=== PATIENT | female | born 1995 | race Hispanic/Latino ===

== ENCOUNTER 2023-07-15 19:24 | Inpatient (IN) | payer OTHER ==
[~2023-07-15] VITALS: Ht 165.1 cm; Wt 105.7 kg
[2023-07-15 19:49] LABS: APPEARANCE,URINE CLOUDY (CLEAR); BILIRUBIN,URINE 0.5 mg/dL (NEGATIVE); COLOR,URINE YELLOW (YELLOW); GLUCOSE, URINE (UA) NEGATIVE (NEGATIVE); KETONES,URINE 5 mg/dL (NEGATIVE); LEUKOCYTE ESTERASE ,URINE 75 Leu/uL (NEGATIVE); NITRATE,URINE NEGATIVE (NEGATIVE); OCCULT BLOOD,URINE NEGATIVE (NEGATIVE); PH,URINE 5.5 (5.0-8.0); PROTEIN,URINE 20 mg/dL (NEGATIVE)
[2023-07-15 19:52] LABS: ADD UA MICROSCOPIC YES
[2023-07-15 19:54] LABS: BACTERIA,URINE MOD /HPF (None Seen); MUCUS,URINE MANY LPF (None Seen); SQUAMOUS EPITHELIAL CELL,UR MOD /HPF (0-2)
[2023-07-15 20:16] LABS: BASOPHILS # (AUTO) 0.04 K/uL (0.00-0.20); BASOPHILS % (AUTO) 0.4 % (0.0-5.0); EOSINOPHILS # (AUTO) 0.08 K/uL (0.00-0.70); EOSINOPHILS % (AUTO) 0.8 % (0.0-8.0); HEMATOCRIT 47.1 % (36-48); IMMATURE GRANULOCYTE ABSOLUTE 0.05 K/uL (0-1); LYMPHOCYTES # (AUTO) 2.2 K/uL (1.0-4.8); MEAN CORPUSCULAR HEMOGLOBIN 27.9 pg (27.0-33.0); MEAN CORPUSCULAR HGB CONC 32.3 g/dL (32.0-36.0); MEAN CORPUSCULAR VOLUME 86.6 fL (79-99); MONOCYTES # (AUTO) 0.5 K/uL (0.1-1.0); MONOCYTES % (AUTO) 4.5 % (3.0-13.0); NEUTROPHILS # (AUTO) 7.6 K/uL (1.8-7.7); NEUTROPHILS % (AUTO) 72.8 % (40.0-77.0); PLATELET COUNT (AUTO) 333 K/uL (130-400); RED BLOOD CELL COUNT(AUTO) 5.44 MIL/uL (4.00-5.50); RED CELL DISTRIBUTION WIDTH 14.5 % (11.0-15.5); WHITE BLOOD COUNT (AUTO) 10.5 K/uL (4.8-10.8)
[2023-07-15 21:29] LABS: CREATININE 1.1 mg/dL (0.5-1.5)
[2023-07-15] MEDS ORDERED: 0.9%NACL 1000ML 1,000 ML IV ONE (21:30)
[2023-07-15] MEDS ORDERED: ONDANSETRON 4MG INJ IVP ONE (21:30)
[2023-07-15] MEDS ORDERED: MORPHINE 2 MG SYG IVP ONE (21:30)
[2023-07-15 21:35] LABS: ALBUMIN 3.9 g/dL (3.5-5.0); BILIRUBIN,TOTAL 2.7 mg/dL (0.2-1.0); TOTAL PROTEIN, SERUM 8.9 g/dL (6.0-8.3)
[2023-07-15 22:19] LABS: AMYLASE 34 U/L (25-115); CREATINE KINASE, TOTAL 65 U/L (21-232)
[2023-07-15] MEDS ORDERED: MAGNESIUM 2GM PREMIX 50ML 50 ML IV PRN (23:00)
[2023-07-15] MEDS ORDERED: POTASSIUM CHLORIDE 10% ELIXIR 20 MEQ/15 ML UDCUP PO PRN (23:00)
[2023-07-15] MEDS ORDERED: ACETAMINOPHEN 325 MG TAB PO PRN ×2 (23:00)
[2023-07-15] MEDS ORDERED: POTASSIUM CHLORIDE 20MEQ/100ML 100 ML IV PRN (23:00)
[2023-07-15] MEDS ORDERED: KCL 20 MEQ ERTAB PO PRN (23:00)
[2023-07-15] MEDS: LACTATED RINGERS 1000ML 1,000 ML IV SCH (23:17)
[2023-07-15] MEDS: CEFTRIAXONE 2GM VIAL IVPB SCH (23:17)
[2023-07-15] MEDS ORDERED: IOHEXOL 350 MG/ML 100ML INFUS..BTL IV ONE (23:24)
[2023-07-16] MEDS: ONDANSETRON 4MG INJ IV PRN ×2 (04:08→11:27)
[2023-07-16] MEDS: MORPHINE 4 MG SYG IV PRN ×3 (04:08→16:37)
[2023-07-16 06:31] LABS: BASOPHILS # (AUTO) 0.02 K/uL (0.00-0.20); BASOPHILS % (AUTO) 0.2 % (0.0-5.0); EOSINOPHILS # (AUTO) 0.11 K/uL (0.00-0.70); EOSINOPHILS % (AUTO) 1.2 % (0.0-8.0); HEMATOCRIT 41.2 % (36-48); IMMATURE GRANULOCYTE ABSOLUTE 0.03 K/uL (0-1); LYMPHOCYTES # (AUTO) 2.6 K/uL (1.0-4.8); LYMPHOCYTES % (AUTO) 28.6 % (21.0-51.0); MEAN CORPUSCULAR HEMOGLOBIN 27.6 pg (27.0-33.0); MEAN CORPUSCULAR HGB CONC 32.5 g/dL (32.0-36.0); MEAN CORPUSCULAR VOLUME 84.9 fL (79-99); MONOCYTES # (AUTO) 0.7 K/uL (0.1-1.0); MONOCYTES % (AUTO) 7.2 % (3.0-13.0); NEUTROPHILS # (AUTO) 5.7 K/uL (1.8-7.7); NEUTROPHILS % (AUTO) 62.5 % (40.0-77.0); PLATELET COUNT (AUTO) 285 K/uL (130-400); RED BLOOD CELL COUNT(AUTO) 4.85 MIL/uL (4.00-5.50); RED CELL DISTRIBUTION WIDTH 14.5 % (11.0-15.5); WHITE BLOOD COUNT (AUTO) 9.1 K/uL (4.8-10.8)
[2023-07-16 06:36] LABS: INR <= 0.93 (0.85-1.15); PROTHROMBIN TIME 10.3 SEC (9.6-11.6)
[2023-07-16 06:37] LABS: PARTIAL THROMBOPLASTIN TIME 28.2 SEC (26.3-35.5)
[2023-07-16 06:38] LABS: ALBUMIN 3.2 g/dL (3.5-5.0); BILIRUBIN,TOTAL 2.1 mg/dL (0.2-1.0); CREATININE 0.8 mg/dL (0.5-1.5); POTASSIUM 3.8 mmol/L (3.5-5.1); TOTAL PROTEIN, SERUM 7.6 g/dL (6.0-8.3)
[2023-07-16] MEDS: FAMOTIDINE 20MG VIAL IV SCH ×2 (10:18→21:20)
[2023-07-16 17:05] VITALS: O2SAT 98
[2023-07-16] MEDS: LACTATED RINGERS 1000ML 1,000 ML IV SCH (17:40)
[2023-07-16 19:00] VITALS: BP 127/79; PULSE 68; RESP 18
[2023-07-16 20:00] VITALS: O2SAT 98
[2023-07-16] MEDS: MORPHINE 2 MG SYG IV PRN (21:20)
[2023-07-16 23:00] VITALS: BP 121/49; PULSE 63; RESP 19
[2023-07-17] VITALS (8 sets, daily range): BP systolic 112–126; BP diastolic 60–86; PULSE 64–76; RESP 18–20; O2SAT 98
[2023-07-17] MEDS: CEFTRIAXONE 2GM VIAL IVPB SCH ×2 (00:45→23:26)
[2023-07-17] MEDS: MORPHINE 4 MG SYG IV PRN ×3 (01:12→19:44)
[2023-07-17] MEDS: LACTATED RINGERS 1000ML 1,000 ML IV SCH (02:22)
[2023-07-17 05:50] LABS: BASOPHILS # (AUTO) 0.02 K/uL (0.00-0.20); BASOPHILS % (AUTO) 0.3 % (0.0-5.0); EOSINOPHILS # (AUTO) 0.19 K/uL (0.00-0.70); EOSINOPHILS % (AUTO) 2.6 % (0.0-8.0); HEMATOCRIT 42.8 % (36-48); IMMATURE GRANULOCYTE ABSOLUTE 0.02 K/uL (0-1); LYMPHOCYTES # (AUTO) 2.5 K/uL (1.0-4.8); LYMPHOCYTES % (AUTO) 33.8 % (21.0-51.0); MEAN CORPUSCULAR HEMOGLOBIN 27.5 pg (27.0-33.0); MEAN CORPUSCULAR HGB CONC 31.1 g/dL (32.0-36.0); MEAN CORPUSCULAR VOLUME 88.6 fL (79-99); MONOCYTES # (AUTO) 0.6 K/uL (0.1-1.0); MONOCYTES % (AUTO) 7.7 % (3.0-13.0); NEUTROPHILS # (AUTO) 4.1 K/uL (1.8-7.7); NEUTROPHILS % (AUTO) 55.3 % (40.0-77.0); PLATELET COUNT (AUTO) 266 K/uL (130-400); RED BLOOD CELL COUNT(AUTO) 4.83 MIL/uL (4.00-5.50); RED CELL DISTRIBUTION WIDTH 14.4 % (11.0-15.5); WHITE BLOOD COUNT (AUTO) 7.4 K/uL (4.8-10.8)
[2023-07-17 06:11] LABS: ALBUMIN 3.2 g/dL (3.5-5.0); BILIRUBIN,TOTAL 1.1 mg/dL (0.2-1.0); CREATININE 0.8 mg/dL (0.5-1.5); MAGNESIUM 1.9 mg/dL (1.80-2.40); POTASSIUM 4.2 mmol/L (3.5-5.1); TOTAL PROTEIN, SERUM 7.5 g/dL (6.0-8.3)
[2023-07-17] MEDS: FAMOTIDINE 20MG VIAL IV SCH ×2 (07:37→19:43)
[2023-07-17] MEDS ORDERED: INDOMETHACIN 100 MG SUPP.RECT RC ONE (08:30)
[2023-07-17] MEDS ORDERED: IOHEXOL-350 50ML VIAL IV ONE (08:52)
[2023-07-17] MEDS: ONDANSETRON 4MG INJ IV PRN (19:43)
[2023-07-18] VITALS (25 sets, daily range): BP systolic 91–132; BP diastolic 46–94; PULSE 54–108; RESP 16–20; O2SAT 98
[2023-07-18] MEDS: ONDANSETRON 4MG INJ IV PRN ×2 (03:59→12:29)
[2023-07-18] MEDS: MORPHINE 4 MG SYG IV PRN ×2 (04:00→15:19)
[2023-07-18] MEDS: FAMOTIDINE 20MG VIAL IV SCH ×2 (07:22→20:07)
[2023-07-18] MEDS ORDERED: ONDANSETRON 4MG INJ ONE (08:07)
[2023-07-18] MEDS ORDERED: LIDOCAINE PF 100MG/5ML (2%) SYRINGE 5ML ONE (08:07)
[2023-07-18] MEDS ORDERED: GLYCOPYRROLATE 0.2 MG/ML 5 ML VIAL ONE (08:08)
[2023-07-18] MEDS ORDERED: FENTANYL CITRATE PF 50 MCG/1 ML 2ML VIAL ONE (08:08)
[2023-07-18] MEDS ORDERED: KETAMINE 50MG/ML SYRINGE 50 MG/ML DISP.SYRIN ONE (08:08)
[2023-07-18] MEDS ORDERED: PROPOFOL 10 MG/ML 20ML VIAL IV ONE (08:08)
[2023-07-18] MEDS ORDERED: MIDAZOLAM HCL 1 MG/ML 2ML VIAL ONE (08:08)
[2023-07-18] MEDS ORDERED: SUCCINYLCHOLINE CHLORIDE 20 MG/ML 10 ML VIAL ONE (08:09)
[2023-07-18] MEDS: CEFTRIAXONE 2GM VIAL IVPB SCH (23:52)
[2023-07-19] VITALS (23 sets, daily range): BP systolic 108–150; BP diastolic 57–99; PULSE 57–86; RESP 14–20; O2SAT 98
[2023-07-19] MEDS: MORPHINE 4 MG SYG IV PRN ×2 (05:15→20:27)
[2023-07-19 06:37] LABS: BASOPHILS # (AUTO) 0.03 K/uL (0.00-0.20); BASOPHILS % (AUTO) 0.4 % (0.0-5.0); EOSINOPHILS # (AUTO) 0.15 K/uL (0.00-0.70); EOSINOPHILS % (AUTO) 2.2 % (0.0-8.0); HEMATOCRIT 41.2 % (36-48); IMMATURE GRANULOCYTE ABSOLUTE 0.02 K/uL (0-1); LYMPHOCYTES # (AUTO) 2.7 K/uL (1.0-4.8); LYMPHOCYTES % (AUTO) 39.5 % (21.0-51.0); MEAN CORPUSCULAR HEMOGLOBIN 27.7 pg (27.0-33.0); MEAN CORPUSCULAR VOLUME 86.6 fL (79-99); MONOCYTES # (AUTO) 0.6 K/uL (0.1-1.0); MONOCYTES % (AUTO) 8.6 % (3.0-13.0); NEUTROPHILS # (AUTO) 3.3 K/uL (1.8-7.7); PLATELET COUNT (AUTO) 276 K/uL (130-400); RED BLOOD CELL COUNT(AUTO) 4.76 MIL/uL (4.00-5.50); WHITE BLOOD COUNT (AUTO) 6.7 K/uL (4.8-10.8)
[2023-07-19 07:02] LABS: ALBUMIN 3.1 g/dL (3.5-5.0); BILIRUBIN,TOTAL 0.6 mg/dL (0.2-1.0); CREATININE 0.9 mg/dL (0.5-1.5); POTASSIUM 4.2 mmol/L (3.5-5.1); TOTAL PROTEIN, SERUM 7.4 g/dL (6.0-8.3)
[2023-07-19] MEDS: FAMOTIDINE 20MG VIAL IV SCH ×2 (07:51→20:31)
[2023-07-19] MEDS ORDERED: LACTATED RINGERS 1000ML 1,000 ML IV ONE (13:06)
[2023-07-19] MEDS ORDERED: INDOCYANINE GREEN 25 MG VIAL IJ ONE (14:31)
[2023-07-19] MEDS ORDERED: MIDAZOLAM HCL 1 MG/ML 2ML VIAL ONE (14:56)
[2023-07-19] MEDS ORDERED: LIDOCAINE PF 100MG/5ML (2%) SYRINGE 5ML ONE (14:56)
[2023-07-19] MEDS ORDERED: PROPOFOL 10 MG/ML 20ML VIAL IV ONE (14:57)
[2023-07-19] MEDS ORDERED: ROCURONIUM BROMIDE 10MG/1ML 5ML VL ONE (14:57)
[2023-07-19] MEDS ORDERED: FENTANYL CITRATE PF 50 MCG/1 ML 2ML VIAL ONE (14:57)
[2023-07-19] MEDS ORDERED: LIDOCAINE HCL 4% LTA SOL 4 ML VIAL ONE (14:58)
[2023-07-19] MEDS ORDERED: ONDANSETRON 4MG INJ ONE (15:08)
[2023-07-19] MEDS ORDERED: DEXAMETHASONE SOD PHOSPHATE 4 MG/ML 1ML VIAL ONE (15:08)
[2023-07-19] MEDS ORDERED: BUPIVACAINE/PF 0.25% 30ML VIAL IJ ONE (15:18)
[2023-07-19] MEDS ORDERED: CEFAZOLIN SODIUM 1 GM VIAL ONE (15:27)
[2023-07-19] MEDS ORDERED: LIDOCAINE HCL MPF 1% 5ML VIAL ONE (15:54)
[2023-07-19] MEDS ORDERED: NEOSTIGMINE METHYLSULFATE 1MG/ML IV ONE (15:57)
[2023-07-19] MEDS ORDERED: GLYCOPYRROLATE 0.2 MG/ML 5 ML VIAL ONE (15:57)
[2023-07-19] MEDS: ONDANSETRON 4MG INJ ONE ×2 (16:29→16:37)
[2023-07-19] MEDS: MEPERIDINE-PF 25 MG/ML SYG ONE ×2 (16:29→16:37)
[2023-07-19] MEDS: TRAMADOL HCL 50 MG TABLET PO SCH ×2 (16:30→22:30)
[2023-07-19] MEDS ORDERED: ONDANSETRON 4MG INJ IVP PRN (16:30)
[2023-07-19] MEDS ORDERED: MEPERIDINE-PF 25 MG/ML SYG ONE (16:39)
[2023-07-19] MEDS: CEFTRIAXONE 2GM VIAL IVPB SCH (22:54)
[2023-07-20] VITALS (8 sets, daily range): BP systolic 102–122; BP diastolic 67–86; PULSE 63–90; RESP 17–19; O2SAT 98
[2023-07-20] MEDS: MORPHINE 2 MG SYG IV PRN (00:14)
[2023-07-20 04:27] LABS: BASOPHILS # (AUTO) 0.02 K/uL (0.00-0.20); BASOPHILS % (AUTO) 0.2 % (0.0-5.0); HEMATOCRIT 39.4 % (36-48); IMMATURE GRANULOCYTE ABSOLUTE 0.07 K/uL (0-1); LYMPHOCYTES # (AUTO) 1.7 K/uL (1.0-4.8); LYMPHOCYTES % (AUTO) 14.7 % (21.0-51.0); MEAN CORPUSCULAR HEMOGLOBIN 27.5 pg (27.0-33.0); MONOCYTES # (AUTO) 0.5 K/uL (0.1-1.0); MONOCYTES % (AUTO) 4.3 % (3.0-13.0); NEUTROPHILS # (AUTO) 9.4 K/uL (1.8-7.7); NEUTROPHILS % (AUTO) 80.2 % (40.0-77.0); PLATELET COUNT (AUTO) 314 K/uL (130-400); RED BLOOD CELL COUNT(AUTO) 4.58 MIL/uL (4.00-5.50); RED CELL DISTRIBUTION WIDTH 14.1 % (11.0-15.5); WHITE BLOOD COUNT (AUTO) 11.7 K/uL (4.8-10.8)
[2023-07-20] MEDS: TRAMADOL HCL 50 MG TABLET PO SCH ×3 (04:30→11:52)
[2023-07-20] MEDS: MORPHINE 4 MG SYG IV PRN (05:20)
[2023-07-20] MEDS: FAMOTIDINE 20MG VIAL IV SCH ×2 (07:57→20:28)
[2023-07-20] MEDS ORDERED: ZOSYN 3.375GM +NS 50ML IV SCH (11:00)
[2023-07-20] MEDS: ZOSYN 3.375GM +NS 50ML IV SCH ×2 (14:28→20:29)
[2023-07-20] MEDS ORDERED: TRAMADOL HCL 50 MG TABLET PO PRN (16:30)
[2023-07-21 04:00] VITALS: BP 113/74; PULSE 64; RESP 19
[2023-07-21] MEDS: ZOSYN 3.375GM +NS 50ML IV SCH (04:37)
[2023-07-21 05:38] LABS: BASOPHILS # (AUTO) 0.02 K/uL (0.00-0.20); BASOPHILS % (AUTO) 0.2 % (0.0-5.0); EOSINOPHILS # (AUTO) 0.08 K/uL (0.00-0.70); EOSINOPHILS % (AUTO) 0.9 % (0.0-8.0); HEMATOCRIT 38.5 % (36-48); IMMATURE GRANULOCYTE ABSOLUTE 0.03 K/uL (0-1); LYMPHOCYTES # (AUTO) 3.8 K/uL (1.0-4.8); LYMPHOCYTES % (AUTO) 42.8 % (21.0-51.0); MEAN CORPUSCULAR HEMOGLOBIN 27.7 pg (27.0-33.0); MEAN CORPUSCULAR HGB CONC 31.7 g/dL (32.0-36.0); MEAN CORPUSCULAR VOLUME 87.3 fL (79-99); MONOCYTES # (AUTO) 0.7 K/uL (0.1-1.0); MONOCYTES % (AUTO) 8.3 % (3.0-13.0); NEUTROPHILS # (AUTO) 4.2 K/uL (1.8-7.7); NEUTROPHILS % (AUTO) 47.5 % (40.0-77.0); PLATELET COUNT (AUTO) 289 K/uL (130-400); RED BLOOD CELL COUNT(AUTO) 4.41 MIL/uL (4.00-5.50); RED CELL DISTRIBUTION WIDTH 14.8 % (11.0-15.5); WHITE BLOOD COUNT (AUTO) 8.9 K/uL (4.8-10.8)
[2023-07-21 05:56] LABS: ALBUMIN 3.1 g/dL (3.5-5.0); BILIRUBIN,TOTAL 0.4 mg/dL (0.2-1.0); CREATININE 0.9 mg/dL (0.5-1.5); POTASSIUM 3.9 mmol/L (3.5-5.1); TOTAL PROTEIN, SERUM 6.9 g/dL (6.0-8.3)
[2023-07-21 07:30] VITALS: O2SAT 98
[2023-07-21 08:00] VITALS: BP 111/71; PULSE 59; RESP 18
[2023-07-21] MEDS: FAMOTIDINE 20MG VIAL IV SCH (08:00)
[2023-07-21] MEDS ORDERED: TRAM50TA4 PO (08:02)
[2023-07-21] MEDS ORDERED: ACET-2079 PO (08:22)
== END 2023-07-21 11:45 | disposition home or self-care (01) | DRG 418 ==
LOC: EDH 19:24 → EDHIP 19:25 → 3AH 07-16 15:50
PROVIDERS: ADMIT Internal Medicine; ATTEND Internal Medicine
PROC: 0F798ZZ Dilation of Common Bile Duct, Via Natural or Artificial Opening Endoscopic (ICD-10-PCS; principal; 2023-07-18)
PROC: 0FT44ZZ Resection of Gallbladder, Percutaneous Endoscopic Approach (ICD-10-PCS; 2023-07-19)
DX: K80.62 Calculus of gallbladder and bile duct with acute cholecystitis without obstruction (principal); E87.1 Hypo-osmolality and hyponatremia; K82.1 Hydrops of gallbladder; N39.0 Urinary tract infection, site not specified; K76.0 Fatty (change of) liver, not elsewhere classified; F17.210 Nicotine dependence, cigarettes, uncomplicated; K66.0 Peritoneal adhesions (postprocedural) (postinfection); F12.90 Cannabis use, unspecified, uncomplicated; Z59.7 Insufficient social insurance and welfare support; Z75.3 Unavailability and inaccessibility of health-care facilities; Z88.8 Allergy status to other drugs, medicaments and biological substances
CPT/HCPCS: 36415; 43262; 43264; 71045; 74177; 74181; 74330; 76705; 80053; 81001; 81025; 82150; 82550; 83690; 83735; 84145; 84484; 85025; 85610; 85730; 86850; 86900; 86901; 87088; 88304; 93005; C1769; C1773; G0378; J0330; J0690; J0696; J1100; J2001; J2175; J2250; J2270; J2405; J2543; J2704; J2710; J3010; J3490; J7030; J7120; Q9967; A4215; A4216; A4222; A4223; A4600; A4649; A4657; A4930; A7002; G0168; J0665; S8037